=== PATIENT | female | born 1985 | race Caucasian/White ===

== ENCOUNTER 2025-10-12 19:10 | Inpatient (IN) ==
[2025-10-12] MEDS: SODIUM CHLORIDE 0.9% 1,000 ML IV SCH (19:59)
[2025-10-12] MEDS: LORazepam 1 MG/1 ML SYR ED Inj Use IV STA (20:02)
[2025-10-12 20:06] LABS: Hematocrit (blood only) 30.7 % (37.0-47.0); Hemoglobin 9.1 g/dL (12.0-16.0); Immature Granulocytes # (auto) 0.07 K/uL (0.01-0.20); Immature Granulocytes % (auto) 0.7 %; Mean Corpuscular Hemoglobin 24.4 pg (25.0-34.0); Mean Corpuscular Volume 82.3 fL (80.0-100.0); Platelet Count 339 K/uL (130-400); RDW Standard Deviation 48.5 fL (36.4-46.3); Red Blood Count 3.73 M/uL (4.20-5.40); White Blood Count 9.81 K/ul (4.8-10.8)
[2025-10-12 20:14] LABS: Appearance Urine Cloudy (Clear); Bacteria Urine Automated 4+ (None Seen); Epithelial Cell Urine Auto >20 /hpf (0-2); Glucose Urine UA Negative (Negative); RBC Urine Automated 0-2 /hpf (0-2); WBC Urine Automated 0-5 /hpf (0-5)
[2025-10-12 20:22] LABS: Acetaminophen < 3 ug/ml (10-30); Alanine Aminotransferase 36 U/L (7-52); Albumin Globulin Ratio 1.1 (0.9-2); Albumin Level 3.8 gm/dl (3.4-5.0); Alkaline Phosphatase 151 U/L (34-104); Anion Gap 8 (3-11); Bilirubin,Total 0.4 mg/dl (0.2-1.0); Blood Urea Nitrogen 14 mg/dl (6-23); Calcium 9.0 mg/dl (8.6-10.3); Carbon Dioxide 28 mmol/L (21-32); Chloride 103 mmol/L (98-107); Globulin 3.6 gm/dl (2.5-4.0); Glucose 129 mg/dl (70-99(Fasting)); Potassium 4.2 mmol/L (3.5-5.1); Salicylate < 3.0 mg/dl (3.0-30); Sodium 139 mmol/L (136-145); Total Protein 7.4 gm/dl (6.0-8.3)
[2025-10-12 20:38] LABS: Amphetamines+Metham, Urine Neg (Neg); MDMA (Ecstacy), Urine Neg (Neg); Marijuana, Urine Neg (Neg)
[2025-10-12 20:39] LABS: Thyroid Stimulating Hormone 1.059 uIu/ml (0.300-4.500)
--- NOTE | 2025-10-12 22:11 | Emergency Department Note ---
History of Present Illness General Chief complaint: Medical Clearance Stated complaint: Medical Clearance Time Seen by Provider: 10/12/25 19:42 History of Present Illness Provider complaint: Mental health evaluation 39-year-old female presents emergency department for mental health evaluation. Patient reports she needs help with her alcohol abuse as well as drug abuse. Patient reports she has been thoughts of wanting to hurt herself and suicide. Patient reports she tried to sign into the [facility] but they directed her here to be medically cleared before admission. Home Medications Medication Instructions Recorded Confirmed Type alprazolam 0.5 mg tablet 0.5 mg PO TID PRN anxiety 10/12/25 10/12/25 History apixaban 5 mg tablet (Eliquis) 5 mg PO BID 10/12/25 10/12/25 History clonidine HCl 0.2 mg tablet 0.2 mg PO TID PRN Hypertension 10/12/25 10/12/25 History cyclobenzaprine 10 mg tablet 10 mg DAILY PRN muscle spams 10/12/25 10/12/25 History esomeprazole magnesium 20 mg PO DAILY 10/12/25 10/12/25 History gabapentin 800 mg tablet 800 mg PO QID 10/12/25 10/12/25 History meloxicam 15 mg tablet 15 mg PO DAILY 10/12/25 10/12/25 History methadone 93 mg PO DAILY 10/12/25 10/12/25 History Allergies Allergy/AdvReac Type Severity Reaction Status Date / Time No Known Allergies Allergy Verified 10/12/25 20:10 Past Med/Surg History Problem List (Updated 10/12/25 @ 23:48 by Lb Mack MD) Alcohol abuse (Acute) Depression with suicidal ideation (Acute) Medical History (Updated 10/12/25 @ 23:48 by Lb Mack MD) GERD (gastroesophageal reflux disease) Social History (Updated 10/12/25 @ 22:14 by Lb Mack MD) Smoking Status: Current every day smoker Tobacco Type: Cigarettes Hx Alcohol Use: Yes Alcohol Intake Frequency: 4 or More x per/Week Hx Substance Use: Yes Prescribed Medications: Opiates Preferred Language: Japanese Feels Safe at Home: Hesitant to Answer Gender Identity: Female Physical Exam Vital Signs Vital Signs - 24 hr 10/12/25 19:15 10/12/25 19:38 10/12/25 21:02 Temperature 36.7 C Temperature Source Oral Pulse Rate 96 H 98 H 88 Respiratory Rate 20 16 Respiratory Effort / Characteristics Non-Labored Spontaneous Respiratory Depth Normal Blood Pressure 138/71 140/89 Blood Pressure Mean 93 106 Pulse Oximetry 97 99 Oxygen Delivery Method Room Air Room Air Sepsis Recent Fever Within 48 Hours No Sepsis New/Unexplained Change in Mental Status N/A Sepsis Action Taken by Nursing No Action Required 10/12/25 21:30 10/12/25 22:26 10/12/25 22:30 Temperature Temperature Source Pulse Rate 92 H 89 89 Respiratory Rate 18 18 16 Respiratory Effort / Characteristics Respiratory Depth Blood Pressure 140/71 135/89 116/83 Blood Pressure Mean 74 107 94 Pulse Oximetry 93 93 93 Oxygen Delivery Method Room Air Room Air Room Air Sepsis Recent Fever Within 48 Hours Sepsis New/Unexplained Change in Mental Status Sepsis Action Taken by Nursing Physical Exam GENERAL: oriented to person, place, and time. appears well-developed and well- nourished. HENT: Exam performed. - Head: Normocephalic and atraumatic. EYES: Conjunctivae and EOM are normal. Right eye exhibits no discharge. Left eye exhibits no discharge. No scleral icterus. NECK: Normal range of motion. Neck supple. No JVD present. CV: Normal rate, regular rhythm, normal heart sounds and intact distal pulses. There is no peripheral edema. Palpable radial pulses bue. PULM/CHEST: Effort normal and breath sounds normal. No respiratory distress. No stridor. no wheezes. no rales. ABD: The abdomen is soft. There is no tenderness. NEURO: Motor and sensation grossly intact. SKIN: Skin is warm and dry. He is not diaphoretic. PSYCH: Patient reports suicidal ideation. Course Course 1941: The patient was evaluated in room A8. A complete history and physical exam was performed 5: Patient medically cleared. Awaiting psychiatric placement. 6: Vital signs stable. Awaiting psychiatric placement. Case signed out to Dr. Guallpa Administered Medications Discontinued Medications Sodium Chloride (Nss) 1,000 mls @ 999 mls/hr IV .Q1H1M [place] Stop: 10/12/25 20:45 Last Infusion: 10/12/25 22:00 Dose: Infused Documented By: Admin: 10/12/25 19:59 Dose: 999 mls/hr Documented By: CASSIE Lorazepam (Lorazepam 1 Mg/1 Ml Syr Ed Inj Use) 1 mg IV ONE STA Stop: 10/12/25 19:43 Last Admin: 10/12/25 20:02 Dose: 1 mg Documented By: CASSIE Medical Decision Making Laboratory Data Attestation: I reviewed the patient's lab results. 10/12/25 19:34 10/12/25 19:34 Lab Results 10/12/25 Range/Units 19:34 WBC 9.81 (4.8-10.8) K/ul RBC 3.73 L (4.20-5.40) M/uL Hgb 9.1 L (12.0-16.0) g/dL Hct 30.7 L (37.0-47.0) % MCV 82.3 (80.0-100.0) fL MCH 24.4 L (25.0-34.0) pg MCHC 29.6 L (32.0-36.0) g/dL RDW Std Deviation 48.5 H (36.4-46.3) fL RDW Coeff of Eldon 16.6 H (11.5-14.5) % Plt Count 339 (130-400) K/uL MPV 9.6 (9.4-12.4) fL Immature Gran % (Auto) 0.7 % Neut % (Auto) 77.1 % Lymph % (Auto) 14.4 % Hendricks % (Auto) 5.3 % Eos % (Auto) 2.2 % Baso % (Auto) 0.3 % Neut # (Auto) 7.56 H (1.40-6.50) K/uL Lymph # (Auto) 1.41 (1.20-3.40) K/uL Hendricks # (Auto) 0.52 (0.11-0.59) K/uL Eos # (Auto) 0.22 (0.00-0.50) K/uL Baso # (Auto) 0.03 (0.00-0.20) K/uL Immature Gran # (Auto) 0.07 (0.01-0.20) K/uL Sodium 139 (136-145) mmol/L Potassium 4.2 (3.5-5.1) mmol/L Chloride 103 (98-107) mmol/L Carbon Dioxide 28 (21-32) mmol/L Anion Gap 8 (3-11) BUN 14 (6-23) mg/dl Creatinine 0.75 (0.6-1.2) mg/dl Est Cr Clr Drug Dosing Not Reportable eGFR 103.79 BUN/Creatinine Ratio 18.7 (10-20) Glucose 129 H (70-99(Fasting)) mg/dl Calcium 9.0 (8.6-10.3) mg/dl Total Bilirubin 0.4 (0.2-1.0) mg/dl AST 43 H (13-39) U/L ALT 36 (7-52) U/L Alkaline Phosphatase 151 H (34-104) U/L Total Protein 7.4 (6.0-8.3) gm/dl Albumin 3.8 (3.4-5.0) gm/dl Globulin 3.6 (2.5-4.0) gm/dl Albumin/Globulin Ratio 1.1 (0.9-2) TSH 1.059 (0.300-4.500) uIu/ml Urine Color Yellow Urine Appearance Cloudy A (Clear) Urine pH 6.5 (4.5-7.5) Ur Specific [place] 1.024 (1.000-1.030) Urine Protein Trace H (Negative) Urine Glucose (UA) Negative (Negative) Urine Ketones Trace H (Negative) Urine Blood Negative (Negative) Urine Nitrite Negative (Negative) Urine Bilirubin Negative (Negative) Urine Urobilinogen Negative (Negative) Ur Leukocyte Esterase Trace H (Negative) Urine WBC (Auto) 0-5 (0-5) /hpf Urine RBC (Auto) 0-2 (0-2) /hpf U Hyaline Cast (Auto) 3-5 H (0-2) /lpf U Epithel Cells (Auto) >20 H (0-2) /hpf Urine Bacteria (Auto) 4+ H (None Seen) Urine Comment Salicylates < 3.0 L (3.0-30) mg/dl Urine Opiates Screen Neg (Neg) Ur Methadone, Qual Pos H (Neg) Urine Fentanyl Screen Neg (Neg) Acetaminophen < 3 L (10-30) ug/ml Urine Barbiturates Neg (Neg) Ur Phencyclidine (PCP) Neg (Neg) U Amphetamin/Meth Scrn Neg (Neg) MDMA (Ecstasy) Screen Neg (Neg) U Benzodiazepines Scrn Pos H (Neg) Ur Cocaine Metabolite Neg (Neg) U Marijuana (THC) Screen Neg (Neg) Ethyl Alcohol mg/dL < 10.0 (<10.0) mg/dl [facility] Narrative 1941: The patient was evaluated in room A8. A complete history and physical exam was performed 2214: Patient medically cleared. Awaiting psychiatric placement. 2345: Vital signs stable. Awaiting psychiatric placement. Case signed out to Dr. Guallpa Impression & Plan Depression with suicidal ideation, Alcohol abuse Discharge Plan Visit Data Chief Complaint: Medical Clearance Stated Complaint: Medical Clearance ED Provider: Marvin Guallpa Discharge Problem: Depression with suicidal ideation, Alcohol abuse Patient Disposition: Still a Patient Condition: Fair Forms Stand Alone Forms: [facility] Prescriptions Prescriptions: No Action methadone 93 mg PO DAILY Eliquis 5 mg tablet 5 mg PO BID gabapentin 800 mg tablet 800 mg PO QID cyclobenzaprine 10 mg tablet 10 mg DAILY PRN (Reason: muscle spams ) alprazolam 0.5 mg tablet 0.5 mg PO TID PRN (Reason: anxiety ) meloxicam 15 mg tablet 15 mg PO DAILY clonidine HCl 0.2 mg tablet 0.2 mg PO TID PRN (Reason: Hypertension) esomeprazole magnesium 20 mg PO DAILY Referrals Referrals: [facility] [Other]
--- NOTE | 2025-10-12 23:47 | Emergency Department Note ---
ED Visit Note Patient was signed out to me at change of shift by Dr. Mack. Patient is suicidal and currently under 201, pending ongoing bed search. Plan currently is for the patient to be evaluated for placement at the [facility]. Patient was signed out to my colleague, Dr. Mai, pending ongoing bed search for final disposition. .
[2025-10-13 05:49] LABS: Hematocrit (blood only) 29.8 % (37.0-47.0); Hemoglobin 9.0 g/dL (12.0-16.0); Mean Corpuscular Hemoglobin 24.9 pg (25.0-34.0); Mean Corpuscular Volume 82.3 fL (80.0-100.0); Platelet Count 286 K/uL (130-400); RDW Standard Deviation 48.5 fL (36.4-46.3); Red Blood Count 3.62 M/uL (4.20-5.40); White Blood Count 7.81 K/ul (4.8-10.8)
[2025-10-13] MEDS: GABAPENTIN 800 MG TAB PO SCH ×2 (07:12→17:32)
[2025-10-13] MEDS: LOSARTAN POTASSIUM 50 MG TAB PO SCH (07:13)
--- NOTE | 2025-10-13 07:31 | Emergency Department Note ---
ED Visit Note Received this patient in signout. 39-year-old female history of anxiety depression referred from the [facility] for mental health evaluation. Home m edications were continued and voluntary inpatient psychiatric treatment was pursued. Evaluated patient around 0810 hrs. this morning. She is eating breakfast auguste and eggs and complaining of withdrawal symptoms from her methadone and inquiring about her medications. Her Eliquis and methadone have been scheduled for 9 AM and discussed with nursing obtaining them. Does report some slight cough cold symptoms send COVID flu RSV test is sent. Tylenol and cough drops ordered for as needed usage. Does not appear to be in alcohol withdrawal at this time. Pharmacy to confirm methadone dosing so there was a several hour delay. Case management assisted with inpatient referrals for psychiatric care. 3 S. requested a respiratory viral panel which was ordered. Evaluated by 3 S. and they assessed her with a PAWS score of 4 and recommended medical admission. Reached out to the medical team for further care for monitoring of possible alcohol withdrawal and further psychiatric care. Patient stated that she takes gabapentin 800 mg 4 times daily and Xanax 0.5 mg 3 times daily. Doses were ordered. Respiratory viral panel does return negative. Discussed with Dr. Peter who will evaluate for further care here medically. .
[2025-10-13] MEDS: METHADONE ORAL SOLN 2 MG/ML PO SCH ×2 (10:50→17:59)
[2025-10-13] MEDS: APIXABAN 5 MG TABLET PO SCH (10:50)
[2025-10-13] MEDS: ACETAMINOPHEN 325 MG TAB PO PRN (10:51)
[2025-10-13] MEDS: PATIENT'S OWN CONTROLLED MED 1 PO SCH ×2 (10:51→17:59)
[2025-10-13] MEDS: COUGH DROP (SUGAR FREE) LOZ 24 LOZ/1 BOX BUCCAL PRN (10:51)
[2025-10-13 12:37] LABS: Influenza A virus by PCR Negative (Neg); Influenza B virus by PCR Negative (Neg); SARS CoV2 RNA(COVID-19) Ceph NEGATIVE (Negative)
[2025-10-13 13:08] LABS: Chlamydia pneumoniae PCR Not Detected (NotDetected); Coronavirus 229E PCR Not Detected (NotDetected); Coronavirus CoV-2 (COVID19)PCR Not Detected (NotDetected); Coronavirus HKU1 PCR Not Detected (NotDetected); Coronavirus NL63 PCR Not Detected (NotDetected); Coronavirus OC43PCR Not Detected (NotDetected); Human Metapneumovirus PCR Not Detected (NotDetected); Parainfluenza Virus 1 PCR Not Detected (NotDetected); Parainfluenza Virus 2 PCR Not Detected (NotDetected); Parainfluenza Virus 3 PCR Not Detected (NotDetected); Parainfluenza Virus 4 PCR Not Detected (NotDetected); Respiratory Syncytial VirusPCR Not Detected (NotDetected); Rhinovirus/Enterovirus PCR Not Detected (NotDetected)
[2025-10-13] MEDS: GABAPENTIN 800 MG TAB PO ONE (13:45)
--- NOTE | 2025-10-13 14:35 | History & Physical Report ---
Date of Service October 13, 2025 Assessment & Plan (1) Alcohol abuse: (2) Pulmonary emboli: (3) GERD (gastroesophageal reflux disease): (4) Depression: (5) Anxiety: (6) Tobacco dependence: (7) Iron deficiency anemia: (8) Methadone maintenance therapy patient: Plan 39yo female with recent diagnosis of pulmonary emboli about 2 months ago at [facility] - now on Eliquis, alcohol abuse, methadone maintenance therapy for prior h/o opiate abuse, depression, HTN, GERD and tobacco dependence. Now being admitted for medical clearance to ensure no withdrawal from alcohol or other substance prior to admittance to inpatient psychiatric unit. #alcohol abuse - -thus far no signs of withdrawal based on symptoms or signs -ordered AWSS scale -ativan prn -will defer on scheduled prophylactic medicines for now -add thiamine IV -add folic IV -cont telemetry #tobacco dependence - -nicoderm patch 14mg/day #methadone maintenance - -currently takes 93mg BID -has been on methadone for 1-2 years; prior to such was on Suboxone, and prior to that had been on various opiates #iron deficiency anemia - -iron studies very c/w severe iron deficiency -she does not have menses; GI blood losses chronically? -would start supplementation #recent h/o PEs on Eliquis - -unprovoked -she reports dopplers of legs were negative -is establishing with hematology back home -cont Eliquis 5mg BID #HTN - -cont home meds but hold lasix #depression / anxiety - -to be admitted to psychiatry following this medical stay -cont Xanax prn to avoid benzo withdrawal -cont gabapentin QID (home med) -defer other meds to psych #GERD - -cont PPI #DVT proph - -Eliquis 5mg BID appreciate psych input/assistance History of Present Illness Chief Complaint: request for mental health services Primary Care Provider: Unknown Unknown 39yo female with recent diagnosis of pulmonary emboli about 2 months ago at [facility] - now on Eliquis, alcohol abuse, methadone maintenance therapy for prior h/o opiate abuse, depression, HTN, GERD and tobacco dependence. She had presented to the [facility] yesterday with hopes of gaining admission for her depression & other mental health problems. Due to concerns for possible alcohol withdrawal she was referred to the ER for evaluation by the [facility]. While in the [facility] ER she was seen by the behavioral health liaison and it was requested that she have at least 24 hours of observation in the medical [facility] to ensure no etoh withdrawal. Patient reports drinking about 8 shots of liquor/day. She began drinking at a young age. She has never had etoh withdrawal to her knowledge. She has never gone to inpatient drug/etoh rehab. Her last etoh beverage was yesterday afternoon - about 2pm. Reports 2 admissions in her teenage years for depression. Has had thoughts of dying in the past, but denies any active suicidal or homicidal ideation at this time. Allergies Allergy/AdvReac Type Severity Reaction Status Date / Time No Known Allergies Allergy Verified 10/12/25 20:10 Home Medications Medication Instructions Recorded Confirmed Type alprazolam 0.5 mg tablet 0.5 mg PO TID PRN anxiety 10/12/25 10/12/25 History apixaban 5 mg tablet (Eliquis) 5 mg PO BID 10/12/25 10/12/25 History gabapentin 800 mg tablet 800 mg PO QID 10/12/25 10/12/25 History methadone 93 mg PO BID 10/12/25 10/13/25 History boric acid 600 mg vaginal 600 mg vaginal QPM 10/13/25 10/13/25 History suppository (Azo Boric Acid) clonidine HCl 0.2 mg tablet 0.2 mg PO TID PRN Hypertension 10/13/25 10/13/25 History cyclobenzaprine 10 mg tablet 10 mg PO TID PRN Muscle Spasm 10/13/25 10/13/25 History esomeprazole magnesium 40 mg 20 mg PO QAM 10/13/25 10/13/25 History capsule,delayed release esomeprazole magnesium 40 mg 40 mg PO DAILY 10/13/25 10/13/25 History capsule,delayed release (Nexium) furosemide 40 mg tablet 40 mg PO QAM 10/13/25 10/13/25 History losartan 100 mg tablet 100 mg PO DAILY 10/13/25 10/13/25 History meloxicam 15 mg tablet 15 mg PO QAM 10/13/25 10/13/25 History Past Med/Surg History Problem List (Updated 10/14/25 @ 02:36 by Bertram Peter MD) Methadone maintenance therapy patient Iron deficiency anemia Medical History (Updated 10/14/25 @ 02:36 by Bertram Peter MD) Depression Anxiety Tobacco dependence Depression with suicidal ideation Alcohol abuse Pulmonary emboli GERD (gastroesophageal reflux disease) Family History (Updated 10/13/25 @ 20:42 by Bertram Peter MD) Mother Rheumatoid arthritis Hypertension Denies family history of Deep vein thrombosis Pulmonary embolism Social History (Updated 10/14/25 @ 02:28 by Bertram Peter MD) Smoking Status: Current every day smoker Tobacco Type: Cigarettes packs per day: 0.5; Cigarettes Per Day: 1/2 ppd; Do You Dip or Chew Tobacco: No; Hx Alcohol Use: Yes Alcohol type: hard liquor Alcohol Intake Frequency: 4 or More x per/Week Hx Substance Use: Yes Prescribed Medications: Opiates Prescribed Medications Comment: methadone maintenance Substance Use Type Other:: pt on methadone Preferred Language: Spanish Beliefs That Will Affect Care: None marital status: Single Current Living Situation: Homeless Current Living Situation Comment: Pt to be admitted to the [facility] current occupational status: unemployed How many Children do You have: 1 other: lives in [facility] Feels Safe at Home: Hesitant to Answer Gender Identity: Female Assistive Devices: Denture - Upper Review of Systems Review of Systems: gen - no fevers or chills, eating wnl today; no weight change eyes - no ocular complaints HENT - mild URI symptoms for few days CV - no chest pain pulm - no dyspnea GI - no vomiting today; no diarrhea; no abd pain; some GERD symptoms - no dysuria; LMP? musculo - denies joint pains neuro - no headache endo - no diabetes Physical Exam Physical Exam: gen - lying comfortably in bed, no signs of withdrawal, pleasant eyes - PERRL, pupils 4-5mm and reactive b/l HENT - MMM, no lesions neck - no JVD, no goiter heart - RRR, s1 s2, no murmur lungs - CTA b/l abd - soft NT ND BS+ ext - no edema, pulses 2+ b/l feet psych - a/o x 3, no signs of intoxication, no signs of withdrawal from any substance; denies SI/HI skin - no rash Results & Data Results & Data Vital Signs (Past 12 Hours) Vital Signs Pulse Resp BP Pulse Ox O2 Del Method 10/13/25 08:30 77 16 121/66 98 10/13/25 07:51 90 19 93 10/13/25 07:48 86 10/13/25 07:42 86 15 92 10/13/25 07:30 133/75 10/13/25 07:30 133/75 10/13/25 07:30 133/75 10/13/25 07:30 133/75 10/13/25 07:30 133/75 10/13/25 07:30 82 14 90 10/13/25 07:00 84 16 130/79 93 10/13/25 06:51 140/80 10/13/25 06:51 140/80 10/13/25 06:51 140/80 10/13/25 06:51 140/80 10/13/25 06:51 140/80 10/13/25 06:42 82 16 92 10/13/25 06:30 77 14 94 10/13/25 06:21 81 13 93 10/13/25 06:12 94 H 19 96 10/13/25 06:00 83 13 97 10/13/25 05:51 88 17 97 10/13/25 05:45 91 H 15 97 10/13/25 05:30 98 H 16 10/13/25 05:30 144/107 H 10/13/25 05:30 144/107 H 10/13/25 05:30 144/107 H 10/13/25 05:30 144/107 H 10/13/25 05:30 144/107 H 10/13/25 05:21 86 20 10/13/25 05:12 78 21 10/13/25 05:00 77 14 10/13/25 05:00 148/92 H 10/13/25 05:00 148/92 H 10/13/25 05:00 148/92 H 10/13/25 05:00 148/92 H 10/13/25 05:00 148/92 H 10/13/25 04:51 78 17 10/13/25 04:42 84 15 92 10/13/25 04:30 138/78 10/13/25 04:30 138/78 10/13/25 04:30 138/78 10/13/25 04:30 81 15 138/78 94 10/13/25 04:00 84 13 137/99 92 10/13/25 03:59 80 10/13/25 03:30 79 18 138/81 92 10/13/25 03:00 86 15 146/98 H 93 Room Air Laboratory Results Laboratory Results - last 24 hr 10/12/25 10/13/25 10/13/25 19:34 05:30 11:20 WBC 7.81 RBC 3.62 L Hgb 9.0 L Hct 29.8 L MCV 82.3 MCH 24.9 L MCHC 30.2 L RDW Std Deviation 48.5 H RDW Coeff of Eldon 16.5 H Plt Count 286 MPV 9.3 L Magnesium 1.9 Iron 25 L TIBC 634 H Transferrin 453 H Transferrin % Sat 4 L Ferritin 9.2 Vitamin B12 HCG, Qual Adenovirus (PCR) B. pertussis DNA (PCR) B.parapertussis DNA PCR C. pneumoniae DNA (PCR) Coronavirus OC43 (PCR) Coronavirus HKU1 (PCR) Coronavirus 229E (PCR) SARS-CoV-2 (PCR) NEGATIVE Coronavirus NL63 (PCR) Human Metapneumovir PCR Influenza Type A (PCR) Negative Influenza Type B (PCR) Negative M. pneumoniae (PCR) Parainfluenza 1 (PCR) Parainfluenza 2 (PCR) Parainfluenza 3 (PCR) Parainfluenza 4 (PCR) RSV (RT-PCR) Negative RSV (PCR) Entero/Rhino (PCR) 10/13/25 10/13/25 11:24 Unknown WBC RBC Hgb Hct MCV MCH MCHC RDW Std Deviation RDW Coeff of Eldon Plt Count MPV Magnesium Iron TIBC Transferrin Transferrin % Sat Ferritin Vitamin B12 292 HCG, Qual Negative Adenovirus (PCR) Not Detected B. pertussis DNA (PCR) Not Detected B.parapertussis DNA PCR Not Detected C. pneumoniae DNA (PCR) Not Detected Coronavirus OC43 (PCR) Not Detected Coronavirus HKU1 (PCR) Not Detected Coronavirus 229E (PCR) Not Detected SARS-CoV-2 (PCR) Not Detected Coronavirus NL63 (PCR) Not Detected Human Metapneumovir PCR Not Detected Influenza Type A (PCR) Not Detected Influenza Type B (PCR) Not Detected M. pneumoniae (PCR) Not Detected Parainfluenza 1 (PCR) Not Detected Parainfluenza 2 (PCR) Not Detected Parainfluenza 3 (PCR) Not Detected Parainfluenza 4 (PCR) Not Detected RSV (RT-PCR) RSV (PCR) Not Detected Entero/Rhino (PCR) Not Detected ECG Additional Comments: EKG - my reading - NSR, nonspecific ST changes anterior leads, QTc wnl PG Care Time/CCT Total # of Minutes Spent Total Time Spent with Patient: Total time spent is greater than 50% in coordination of care (as documented) at patient's floor/unit and/or counseling patient: Coding Level of Care Code 68036 INT INP/OBS CARE 2/55MIN Diagnoses Alcohol abuse F10.10 Pulmonary emboli I26.99 GERD (gastroesophageal reflux disease) K21.9 Depression F32.A Anxiety F41.9 Tobacco dependence F17.200 Iron deficiency anemia D50.9 Methadone maintenance therapy patient Z79.001
[2025-10-13 15:58] LABS: Iron 25 mcg/dl (35-150); Magnesium 1.9 mg/dl (1.7-2.4); Total Iron Binding Cap Calc 634 mcg/dl (250-450); Transferrin 453 mg/dl (200-360); Transferrin (FE) Percent Satur 4 % (15-50)
[2025-10-13 16:07] LABS: Pregnancy Test, Serum Negative (Negative)
[2025-10-13 16:19] LABS: Ferritin 9.2 ng/ml (8-388)
[2025-10-13] MEDS ORDERED: METHADONE ORAL SOLN 2 MG/ML PO SCH ×2 (17:30)
[2025-10-13] MEDS: SUCRALFATE 1 GM/10 ML UDC PO ONE (18:01)
[2025-10-13] MEDS ORDERED: LORazepam 1 MG TAB PO PRN (20:05)
[2025-10-13] MEDS ORDERED: ONDANSETRON INJ 2 MG/ML 2 ML VIAL IV PRN (20:05)
[2025-10-13] MEDS: NICOTINE 14 MG/24 HR PATCH TD SCH (20:57)
[2025-10-13] MEDS: FOLIC ACID 1 MG in SYRINGE 9.8 ML IV STA (20:58)
--- NOTE | 2025-10-13 21:29 | Electrocardiogram Report ---
Test Reason : Blood Pressure : */* mmHG Vent. Rate : 95 BPM Atrial Rate : 95 BPM P-R Int : 108 ms QRS Dur : 94 ms QT Int : 374 ms P-R-T Axes : 30 10 30 degrees QTcB Int : 469 ms Sinus rhythm with short [place] Minimal voltage criteria for LVH, may be normal variant ( R in aVL ) Cannot rule out Anterior infarct , age undetermined Nonspecific ST and T wave abnormality Abnormal ECG No previous ECGs available Confirmed by Jose Elias Sorensen ([id number]) on 10/13/2025 9:29:21 PM Referred By: REFERRED SELF Confirmed By: Jose Elias Sorensen
[2025-10-13] MEDS: THIAMINE HCL 500 MG in SODIUM CHLORIDE 0.9% 50 ML IV SCH (22:02)
[2025-10-13] MEDS: MELATONIN 3 MG TAB PO PRN (22:02)
[2025-10-14 06:07] LABS: Alanine Aminotransferase 23.0 U/L (7-52); Albumin Globulin Ratio 1.2 (0.9-2); Albumin Level 3.6 gm/dl (3.4-5.0); Alkaline Phosphatase 126.0 U/L (34-104); Anion Gap 5.0 (3-11); Bilirubin,Total 0.3 mg/dl (0.2-1.0); Blood Urea Nitrogen 11.0 mg/dl (6-23); Calcium 8.5 mg/dl (8.6-10.3); Carbon Dioxide 28.0 mmol/L (21-32); Chloride 108.0 mmol/L (98-107); Creatinine Clr Calc Pharmacy 124.0 ml/min; Globulin 2.9 gm/dl (2.5-4.0); Glucose 78.0 mg/dl (70-99(Fasting)); Potassium 4.0 mmol/L (3.5-5.1); Sodium 141.0 mmol/L (136-145); Total Protein 6.5 gm/dl (6.0-8.3)
[2025-10-14] MEDS: CYANOCOBALAMIN (B-12) 500 MCG TABLET PO SCH (08:09)
[2025-10-14] MEDS: FOLIC ACID 1 MG in SYRINGE 9.8 ML IV SCH (08:10)
[2025-10-14] MEDS: REMOVE NICODERM PATCH SCH (08:10)
[2025-10-14] MEDS: SENNA 8.6 MG TAB PO SCH (08:35)
[2025-10-14] MEDS: POLYETHYLENE (MIRALAX) 17 GM PACK PO SCH (08:35)
[2025-10-14] MEDS: IRON SUCROSE 300 MG in SODIUM CHLORIDE 0.9% 250 ML IV ONE (11:29)
--- NOTE | 2025-10-14 12:24 | Psychiatric Consultation ---
Date of Consultation October 14, 2025 Impression / Recommendations Impression Ale Carpio a 39-year-old female, who presented to the [facility] initially reporting passive suicidal ideation, but denies ideation now. She does have symptoms of anxiety and depression, which are primarily triggered at this point by her homelessness, and are further complicated by substance use. She reportedly does take methadone and benzodiazepine only as prescribed, but continues to abuse alcohol. So far, she has had no alcohol withdrawal symptoms. I did talk with her about starting an SSRI to target depression and anxiety symptoms. She feels Prozac has been helpful did not cause side effects in the past, but she did not stay on the long enough to know if it was helpful. Could start Prozac 20 mg daily. Long-term plan for her would be to get her off Xanax, but this would have to be done very slowly and likely in a monitored setting Patient is interested in a residential type treatment, since she does not have stable housing and feels overwhelmed. However, she does not qualify for psychiatric admission when she does not have active suicidal ideation, and is not a danger to herself or others, and able to care for herself. A dual diagnosis rehab would be an appropriate option to explore, if the patient is agreeable. If not, she could choose to pursue outpatient treatment closer to her home area, and utilize the winter/cold weather residential there. If she is not staying in the residential treatment, she will need to get back to the [facility] to continue follow-up with her methadone clinic anyway. If she is discharging to an outpatient setting, consider sending her with a 30 day Prozac prescription that could cover her until she gets in with her methadone clinic. Presumably they could make a referral for outpatient psychiatry treatment as well. Overall, I spent a total of 60 minutes on this patient's care, including review of chart/records, direct evaluation of the patient, ordering medication, coordination with nursing, interdisciplinary team meeting, and documentation. (1) Methadone maintenance therapy patient: (2) Post traumatic stress disorder (PTSD): (3) Adjustment disorder with mixed anxiety and depressed mood: (4) Alcohol use disorder: (5) Benzodiazepine dependence: Plan No indication for psychiatric admission at this time Could start Prozac 20 mg daily for anxiety and depression. Patient has tolerated it well in the past. Recommend referral to dual diagnosis rehab that could treat both substance and mental health. Alternatively, patient could choose to pursue outpatient treatment closer to [facility], where her methadone clinic is located. Psych History Identifying Data Ale Schneider is a 39-year-old female with a history of hypertension, GERD, recent PE on Eliquis, alcohol abuse, opiate use disorder, depression. She presented to the ED on 10/12/2025 after being referred by [facility] for medical clearance. Chief Complaint " My life is falling apart". History of Present Illness Patient is not previously known to this department, and is from the [facility]. She self-presented to [facility] seeking psychiatric admission for treatment of anxiety and depression, reporting passive SI. given her recent alcohol use, they required she be evaluated in an emergency room for medical clearance. She was admitted for observation to rule out alcohol with drawal. She has been stable and not requiring alcohol withdrawal medication. however, after reviewing her case, [facility] did decline her referral due to medical complexity. Psychiatry is consulted for evaluation of need for psychiatric admission. Patient states she has been looking into the [facility] as possible treatment option for several months. Ultimately, she decided to pursue it and anxiety and depression were worsening in the setting of having to leave work most recent source of housing, which was a friends place. That friend drove her here so she could be a walk-in to [facility]. She says anxiety tends to worsen depression and is "constant". She says it causes her heart to pounding and she sometimes feels short of breath. No GI symptoms or headaches. She will tend to isolate herself and avoid being around people. She does not report excessive worry, but does say that she recently has been stressed by homelessness and worsening back pain. She denies any auditory visualizations. Denies paranoia. No manic symptoms. No clear panic attacks. Denies withdrawal symptoms. She actually did deny suicidal ideation, stating "not really", and then "I know you have to e xaggerate to get admitted". She felt she had no options of places to live, and this prompted her looking into inpatient psychiatric treatment. She says she was avoiding going to rehab because they tend to take her off Xanax too quickly. She has been on Xanax for 5 years. It is prescribed by her methadone doctor. She attends a methadone clinic in [facility], where she also sees a therapist and has a sample case porter. Past Psychiatric History Previous Psych History: reported past diagnoses of major depressive disorder, generalized anxiety disorder, PTSD +trauma hx Fhx - mother - etoh addiction (now sober) Current Psychiatric Diagnosis: MDD, PTSD, SIENA Outpatient Services: Has a therapist through her methadone clinic. No psychiatrist. Has a sample case porter. Previous Psych Admissions: history of suicide attempt at age 15 by taking sleeping pills and antidepressant overdose Hospital[facility] at [facility] at age 15. No further psychiatric admissions. History of Previous Suicide Attempt: Yes Past Medication Trials: Lexapro (may cause worse anxiety), Prozac (caused no problems but she did not stay on it), Suboxone, other benzodiazepines. Additional Notes: Addiction began in her teenage years, and led to her withdrawing from school in grade 11 Attended rehab 5 years ago at [place] Drinking 8-10 alcoholic beverages (typically small liquor bottles) daily for the past 3 months. Last drink was approximately 6 hours prior to presentation to the emergency room. Per PDMP, she does feel Xanax consistently every 14 days, prescribed by Elsa Smith who is based out of [facility] in [facility]. PDMP does not show any record of methadone being filled in the last year, But UDS was positive for methadone. Patient reportedly takes 93 mg daily. UDS also positive for benzos. Alcohol level was negative. Allergies Allergy/AdvReac Type Severity Reaction Status Date / Time No Known Allergies Allergy Verified 10/12/25 20:10 Home Medications Medication Instructions Recorded Confirmed Type alprazolam 0.5 mg tablet 0.5 mg PO TID PRN anxiety 10/12/25 10/12/25 History apixaban 5 mg tablet (Eliquis) 5 mg PO BID 10/12/25 10/12/25 History gabapentin 800 mg tablet 800 mg PO QID 10/12/25 10/12/25 History methadone 93 mg PO BID 10/12/25 10/13/25 History boric acid 600 mg vaginal 600 mg vaginal QPM 10/13/25 10/13/25 History suppository (Azo Boric Acid) clonidine HCl 0.2 mg tablet 0.2 mg PO TID PRN Hypertension 10/13/25 10/13/25 History cyclobenzaprine 10 mg tablet 10 mg PO TID PRN Muscle Spasm 10/13/25 10/13/25 History esomeprazole magnesium 40 mg 20 mg PO QAM 10/13/25 10/13/25 History capsule,delayed release esomeprazole magnesium 40 mg 40 mg PO DAILY 10/13/25 10/13/25 History capsule,delayed release (Nexium) furosemide 40 mg tablet 40 mg PO QAM 10/13/25 10/13/25 History losartan 100 mg tablet 100 mg PO DAILY 10/13/25 10/13/25 History meloxicam 15 mg tablet 15 mg PO QAM 10/13/25 10/13/25 History Patient History Medical History (Updated 10/14/25 @ 14:42 by Analy Vail DO) Depression Anxiety Tobacco dependence Depression with suicidal ideation Alcohol abuse Pulmonary emboli GERD (gastroesophageal reflux disease) Family History Mother Rheumatoid arthritis Hypertension Denies family history of Deep vein thrombosis Pulmonary embolism Social History Smoking Status: Current every day smoker Tobacco Type: Cigarettes packs per day: 0.5; Cigarettes Per Day: 1/2 ppd; Do You Dip or Chew Tobacco: No; Hx Alcohol Use: Yes Alcohol type: hard liquor Alcohol Intake Frequency: 4 or More x per/Week Hx Substance Use: Yes Prescribed Medications: Opiates Prescribed Medications Comment: methadone maintenance Substance Use Type Other:: pt on methadone Preferred Language: Welsh Beliefs That Will Affect Care: None marital status: Single Current Living Situation: Homeless Current Living Situation Comment: Pt to be admitted to the [facility] current occupational status: unemployed How many Children do You have: 1 other: lives in [facility] Feels Safe at Home: Hesitant to Answer Safety Concerns: Feels Safe At This Time Gender Identity: Female Assistive Devices: Denture - Upper Physical Exam Psychiatric: Orientation: alert, oriented x 3 and cooperative Apperance: appropriately dressed and appropriately groomed Eye Contact: + fair eye contact Motor Behavior: steady gait and station and no abnormal motor movements fidgeting Speech: normal rate/rhythm/volume of speech Affect: + anxious affect, + constricted affect and mood congruent with affect Mood: + depressed mood and + anxious mood Thought Process: goal directed thought process, linear/logical thought process, clear/coherent thought process and thought association intact Thought Content: reality based without delusions Suicidal Thoughts: denies suicidal thoughts, denies suicidal plan and denies suicidal intent Homicidal Thoughts: denies homicidal thoughts, denies homicidal plan and denies homicidal intent Hallucinations: no auditory hallucinations and no visual hallucinations Cognition: recent memory grossly intact, remote memory grossly intact, attention grossly intact and language grossly intact Estimated Intelligence: consistent with education level Insight: + fair insight Judgment: + fair judgement Vital Signs (Past 24 Hours): Last Vital Signs Temp 36.4 C L 10/14/25 11:23 Pulse 75 10/14/25 11:23 Resp 18 10/14/25 11:23 BP 145/71 H 10/14/25 11:23 Pulse Ox 93 10/14/25 11:23 O2 Del Method Room Air 10/14/25 11:23 Results & Data (PSY) Medications Administered Acetaminophen (Acetaminophen 325 Mg Tab) 650 mg PO Q6H PRN PRN Reason: Pain or Fever Stop: 11/12/25 08:14 Last Admin: 10/13/25 10:51 Dose: 650 mg Documented By: cintia Alprazolam (Alprazolam 0.5 Mg Tablet) 0.5 mg PO TID PRN PRN Reason: anxiety Stop: 11/12/25 20:04 Last Admin: 10/14/25 06:34 Dose: 0.5 mg Documented By: Admin: 10/13/25 22:03 Dose: 0.5 mg Documented By: DEMARCUS Apixaban (Apixaban 5 Mg Tablet) 5 mg PO BID [facility] Stop: 11/12/25 08:59 Last Admin: 10/14/25 08:09 Dose: 5 mg Documented By: Admin: 10/13/25 22:08 Dose: 5 mg Documented By: Admin: 10/13/25 10:50 Dose: 5 mg Documented By: cintia Cyanocobalamin (Cyanocobalamin (B-12) 500 Mcg Tablet) 1,000 mcg PO QAM [facility] Stop: 11/13/25 08:59 Last Admin: 10/14/25 08:09 Dose: 1,000 mcg Documented By: RICHAR Gabapentin (Gabapentin 800 Mg Tab) 800 mg PO QID [facility] Stop: 11/12/25 16:59 Last Admin: 10/14/25 08:05 Dose: 800 mg Documented By: Admin: 10/13/25 20:57 Dose: 800 mg Documented By: Admin: 10/13/25 17:32 Dose: 800 mg Documented By: MITCH Thiamine HCl 500 mg/ Sodium (Chloride) 55 mls @ 210 mls/hr IV Q8H [facility] Stop: 10/15/25 12:21 Last Infusion: 10/14/25 11:29 Dose: Infused Documented By: Admin: 10/14/25 11:10 Dose: 210 mls/hr Documented By: Infusion: 10/14/25 04:44 Dose: Infused Documented By: Admin: 10/14/25 04:28 Dose: 210 mls/hr Documented By: Infusion: 10/13/25 22:18 Dose: Infused Documented By: Admin: 10/13/25 22:02 Dose: 210 mls/hr Documented By: DEMARCUS Folic Acid 1 mg/ Syringe 10 mls @ 5 mls/min IV QAM [facility] Stop: 11/13/25 08:59 Last Admin: 10/14/25 08:10 Dose: 5 mls/min Documented By: RICHAR Losartan Potassium (Losartan Potassium 50 Mg Tab) 100 mg PO QAM [facility] Stop: 11/12/25 08:59 Last Admin: 10/14/25 08:10 Dose: 100 mg Documented By: Admin: 10/13/25 07:13 Dose: 100 mg Documented By: nrs Melatonin (Melatonin 3 Mg Tab) 3 mg PO HS PRN PRN Reason: Sleep Stop: 11/12/25 20:04 Last Admin: 10/13/25 22:02 Dose: 3 mg Documented By: DEMARCUS Menthol (Cough Drop (Sugar Free) Humberto 24 Humberto/1 Box) 1 humberto BUCCAL Q2H PRN PRN Reason: Sore Throat Stop: 11/12/25 08:13 Last Admin: 10/13/25 10:51 Dose: 1 humberto Documented By: nrs Methadone HCl (Methadone Oral Soln 2 Mg/Ml) 93 mg PO BID@0630,1730 [facility] Stop: 10/27/25 17:29 Last Admin: 10/14/25 06:24 Dose: 93 mg Documented By: Admin: 10/13/25 17:59 Dose: 93 mg Documented By: BORA Miscellaneous (Boric Acid [Azo Boric Acid] 600 Mg Suppository- Order Awaiting Action) 1 each N/A QS [facility] Stop: 11/13/25 00:00 Last Admin: 10/14/25 08:05 Dose: Not Given Documented By: Admin: 10/13/25 23:41 Dose: Not Given Documented By: DEMARCUS Miscellaneous (Remove Nicoderm Patch) 1 each N/A DAILY@0859 [facility] Stop: 11/13/25 08:58 Last Admin: 10/14/25 08:10 Dose: 1 each Documented By: RICHAR Nicotine (Nicotine 14 Mg/24 Hr Patch) [facility] Stop: 11/12/25 20:04 Last Admin: 10/14/25 08:10 Dose: 1 patch Documented By: Admin: 10/13/25 20:57 Dose: 1 patch Documented By: MAURICIO Non-Formulary Medication (Patient's Own Controlled Med 1) 1 each PO BID@5930,3510 [facility] Stop: 10/27/25 17:29 Last Admin: 10/14/25 06:25 Dose: Not Given Documented By: Admin: 10/13/25 17:59 Dose: Not Given Documented By: BORA Pantoprazole Sodium (Pantoprazole 40 Mg Tab) 40 mg PO QAM [facility] Stop: 11/13/25 08:59 Last Admin: 10/14/25 08:10 Dose: 40 mg Documented By: RICHAR Polyethylene Glycol (Polyethylene (Miralax) 17 Gm Pack) 17 gm PO DAILY [facility] Stop: 11/13/25 08:59 Last Admin: 10/14/25 08:35 Dose: 17 gm Documented By: RICHAR Sennosides (Senna 8.6 Mg Tab) 17.2 mg PO QAM [facility] Stop: 11/13/25 08:59 Last Admin: 10/14/25 08:35 Dose: 17.2 mg Documented By: RICHAR Coding Level of Care Code 81634 IN/OBS CONSULT LVL 4,60M Diagnoses Methadone maintenance therapy patient Z79.072 Post traumatic stress disorder (PTSD) F43.10 Adjustment disorder with mixed anxiety and depressed mood F43.23 Alcohol use disorder F10.90 Benzodiazepine dependence F13.20
[2025-10-14] MEDS: PATIENT'S OWN CONTROLLED MED 3 PO SCH (16:34)
[2025-10-14] MEDS: SUCRALFATE 1 GM/10 ML UDC PO ONE (16:55)
--- NOTE | 2025-10-14 20:51 | Hospitalist Progress Note ---
Date of Service October 14, 2025 Assessment & Plan (1) Alcohol abuse: (2) Pulmonary emboli: (3) GERD (gastroesophageal reflux disease): (4) Depression: (5) Anxiety: (6) Tobacco dependence: (7) Iron deficiency anemia: (8) Methadone maintenance therapy patient: Plan 39yo female with recent diagnosis of pulmonary emboli about 2 months ago at [facility] - now on Eliquis, alcohol abuse, methadone maintenance therapy for prior h/o opiate abuse, depression, HTN, GERD and tobacco dependence. Now being admitted for medical clearance to ensure no withdrawal from alcohol or other substance prior to admittance to inpatient psychiatric unit. #alcohol abuse - -again no signs of withdrawal based on symptoms or signs -remains on AWSS scale; has not required any prn ativan -cont ignacia defer on scheduled prophylactic medicines -cont thiamine IV -cont folic IV -cont telemetry - which has been normal to date #tobacco dependence - -nicoderm patch 14mg/day #methadone maintenance - -currently takes 93mg BID -has been on methadone for 1-2 years; prior to such was on Suboxone, and prior to that had been on various opiates #iron deficiency anemia - -iron studies very c/w severe iron deficiency -she does not have menses; GI blood losses chronically? will need GI w/u upon return to [place], [facility] -cont PPI -IV venofer 300mg IV today; then consider another dose tomorrow -B12 level is low normal (290s) - supplement #recent h/o PEs on Eliquis - -unprovoked -she reports dopplers of legs were negative -is establishing with hematology back home -cont Eliquis 5mg BID #HTN - -cont home meds but hold lasix #depression / anxiety - -cont Xanax prn to avoid benzo withdrawal -cont gabapentin QID (home med) -defer other meds to psych -patient wants to go to the [facility] - social work aware, psych aware - social work to call to the [facility] to see if this is still a possible discharge disposition for her #GERD - -cont PPI; may need BID dosing due to ongoing symptoms #DVT proph - -Eliquis 5mg BID #abnormal EKG - -obtain echo -nonspecific anterior ST changes Admission and Anticipated Discharge Date Admission Date: October 13, 2025 Subjective no events overnight tele wnl did not require any ativan prn etoh withdrawal still interested in going to inpatient psych at the [facility] denies any withdrawal symptoms this am having reflux issues at times we discussed the Fe def issues Review of Systems Review of Systems: CV - no cp pulm - no dyspnea GI - no N/V neuro - no tremors Physical Exam Physical Exam: gen - lying comfortably in bed, no signs of withdrawal, pleasant HENT - MMM neck - no JVD heart - RRR, s1 s2, no murmur lungs - CTA b/l abd - soft NT ND BS+ ext - no edema, pulses 2+ b/l feet psych - a/o x 3 neuro - no tremors Results & Data Results & Data Vital Signs (Past 12 Hours) Vital Signs Temp Pulse Pulse Resp BP Pulse Ox O2 Del Method 10/14/25 19:24 36.8 C 82 20 158/97 H 95 Room Air 10/14/25 15:11 102 H 10/14/25 15:02 36.7 C 76 20 151/99 H 96 Room Air 10/14/25 11:23 36.4 C L 75 18 145/71 H 93 Room Air 10/14/25 10:26 89 Laboratory Results Laboratory Results - last 24 hr 10/14/25 05:34 Sodium 141 Potassium 4.0 Chloride 108 H Carbon Dioxide 28 Anion Gap 5 BUN 11 Creatinine 0.77 Est Cr Clr Drug Dosing 124.0 eGFR 100.57 BUN/Creatinine Ratio 14.3 Glucose 78 Calcium 8.5 L Total Bilirubin 0.3 AST 28 ALT 23 Alkaline Phosphatase 126 H Total Protein 6.5 Albumin 3.6 Globulin 2.9 Albumin/Globulin Ratio 1.2 PG Care Time/CCT Total # of Minutes Spent Total Time Spent with Patient: Total time spent is greater than 50% in coordination of care (as documented) at patient's floor/unit and/or counseling patient: Coding Level of Care Code 37635 SUB INP/OBS CARE 3/50MIN Diagnoses Alcohol abuse F10.10 Pulmonary emboli I26.99 GERD (gastroesophageal reflux disease) K21.9 Depression F32.A Anxiety F41.9 Tobacco dependence F17.200 Iron deficiency anemia D50.9 Methadone maintenance therapy patient Z79.891
[2025-10-15] MEDS: IRON SUCROSE 300 MG in SODIUM CHLORIDE 0.9% 250 ML IV ONE (10:13)
[2025-10-15 10:24] LABS: Hematocrit (blood only) 29.0 % (37.0-47.0); Hemoglobin 8.7 g/dL (12.0-16.0); Mean Corpuscular Hemoglobin 25.1 pg (25.0-34.0); Mean Corpuscular Volume 83.8 fL (80.0-100.0); Platelet Count 302 K/uL (130-400); RDW Standard Deviation 49.5 fL (36.4-46.3); Red Blood Count 3.46 M/uL (4.20-5.40); White Blood Count 8.87 K/ul (4.8-10.8)
[2025-10-15] MEDS: NITROGLYCERIN SL 0.4 MG/TAB TAB ONE (10:33)
[2025-10-15] MEDS: NITROGLYCERIN SL 0.4 MG/TAB TAB SL STA (10:43)
[2025-10-15] MEDS: ALBUT/IPRATROP 3MG/0.5MG NEB 3 ML VIAL NEB STA (12:26)
--- NOTE | 2025-10-15 15:15 | XCELERA ---
[id number]
--- NOTE | 2025-10-15 17:26 | XRay Report ---
Clinical History: Acute bronchitis Technique: PA and lateral views of the chest were obtained Findings: There is possible right lower lobe infiltrate. The heart size is within normal limits. No pleural effusion or pneumothorax is seen. There is no definite pulmonary nodule. No fracture is noted. No foreign body is seen Impression: Possible right lower lobe pneumonia ACT 112: Positive. There are findings on this exam that require communication between the performing entity and the patient following Patient Test Result Information Act ([place] ACT 112) guidelines. Electronically signed by Petros Da Silva 10-15-2025 5:25 PM
[2025-10-15] MEDS: SUCRALFATE 1 GM/10 ML UDC PO SCH (18:08)
[2025-10-15] MEDS: FLUTICASONE/VILANTEROL 100/25MCG 14 PUFFS/INHALER INH SCH (18:09)
[2025-10-15] MEDS: DOXYCYCLINE HYCLATE 100 MG CAP PO STA (18:10)
--- NOTE | 2025-10-15 18:21 | Electrocardiogram Report ---
Test Reason : Blood Pressure : */* mmHG Vent. Rate : 83 BPM Atrial Rate : 83 BPM P-R Int : 186 ms QRS Dur : 88 ms QT Int : 370 ms P-R-T Axes : 41 26 37 degrees QTcB Int : 434 ms Sinus rhythm Nonspecific T wave abnormality When compared with ECG of 12-Oct-2025 19:34, FL interval has increased T wave inversion no longer evident in Anterior leads Confirmed by Jose Elias Sorensen ([id number]) on 10/15/2025 6:21:36 PM Referred By: REFERRED SELF Confirmed By: Jose Elias Sorensen
--- NOTE | 2025-10-15 18:22 | Electrocardiogram Report ---
Test Reason : Blood Pressure : */* mmHG Vent. Rate : 77 BPM Atrial Rate : 77 BPM P-R Int : 158 ms QRS Dur : 90 ms QT Int : 440 ms P-R-T Axes : 48 26 17 degrees QTcB Int : 497 ms Normal sinus rhythm Prolonged QT Abnormal ECG When compared with ECG of 14-Oct-2025 16:50, QT has lengthened Confirmed by Jose Elias Sorensen ([id number]) on 10/15/2025 6:22:25 PM Referred By: REFERRED SELF Confirmed By: Jose Elias Sorensen
--- NOTE | 2025-10-15 18:54 | Hospitalist Progress Note ---
Date of Service October 15, 2025 Assessment & Plan (1) RLL pneumonia: (2) Pleuritic chest pain: (3) Alcohol abuse: (4) Pulmonary emboli: (5) GERD (gastroesophageal reflux disease): (6) Depression: (7) Anxiety: (8) Tobacco dependence: (9) Iron deficiency anemia: (10) Methadone maintenance therapy patient: Plan 39yo female with recent diagnosis of pulmonary emboli about 2 months ago at [facility] - now on Eliquis, alcohol abuse, methadone maintenance therapy for prior h/o opiate abuse, depression, HTN, GERD and tobacco dependence. Now being admitted for medical clearance to ensure no withdrawal from alcohol or other substance prior to admittance to inpatient psychiatric unit. #pleuritic chest pain - -suspect 2nd to bronchitis/RLL pneumonia -is on Eliquis BID and doubt recurrent PEs -CXR with possible RLL pneumonia -has had URI symptoms for about a week; interestingly her resp BioFire was negative -pleuritic symptoms improved s/p duoneb x 1 today -nitro SL x 1 did nothing for pain -I doubt pericarditis -echo returned with normal EF, normal LV wall motion, normal valves, no pericardial effusion -troponin negative -treat for bronchitis; treat for RLL pneumonia #RLL pneumonia and acute bronchitis - -add Breo daily -add mucinex 1200mg BID -add cefdinir 300mg BID x 7 days + doxy 100mg BID x 7 days -stable in room air #alcohol abuse - -again no signs of withdrawal based on symptoms or signs -remains on AWSS scale; has not required any prn ativan -cont thiamine -cont folic acid #tobacco dependence - -nicoderm patch 14mg/day #methadone maintenance - -currently takes 93mg BID -has been on methadone for 1-2 years; prior to such was on Suboxone, and prior to that had been on various opiates #iron deficiency anemia - -iron studies very c/w severe iron deficiency -she does not have menses; GI blood losses chronically? will need GI w/u upon return to [place], her home city -cont PPI -IV venofer 300mg IV x 3 doses while here -B12 level is low normal (290s) - supplement #recent h/o PEs on Eliquis - -unprovoked -she reports dopplers of legs were negative -is establishing with hematology back home -cont Eliquis 5mg BID #HTN - -cont home meds but hold lasix #depression / anxiety - -cont Xanax prn to avoid benzo withdrawal -cont gabapentin QID (home med) -defer other meds to psych -patient wanted to go to the [facility] but unfortunately she has not been accepted there and she does not meet criteria for [address] [place] [address] Behavioral Health unit -thus, does not require inpatient psych treatment -will ultimately d/c to the community instead #GERD - -cont PPI but increase to BID dosing and add carafate 1gm QID due to ongoing symptoms -needs outpatient EGD #DVT proph - -Eliquis 5mg BID #abnormal EKG - -echo wnl -nonspecific anterior ST changes on EKG uncertain -would benefit from outpatient stress test for risk factor stratification very complicated care today multiple bedside visits, multiple calls to case management, etc. total time today on all care activities 90 minutes Admission and Anticipated Discharge Date Admission Date: October 15, 2025 Subjective this am patient was having pleuritic chest discomfort - NOT worse with supine positioning pain was over the lower sternal area she feels like her recent cold is in her chest coughing, and having some mucous production no dyspnea or BAEZ pleuritic pain is not radiating the pleuritic pain is not similar to any symptoms she had when her PEs were found several months ago - in fact she had NO chest pain with those PEs no abd pain states today's symptoms are different vs her typical GERD symptoms reports that possibly her mother or a friend could come get her from [place] this weekend she can't stay with either - she will end up in a homeless long term in [place] she stayed in a long term for 2 months last winter Review of Systems Review of Systems: gen - no fevers or chills cv - see HPI; no orthopnea pulm - mild wheeze and mild cough GI - no N/V Physical Exam Physical Exam: 1st exam: gen - lying comfortably in bed, no signs of withdrawal, despite c/o pain she is comfortable HENT - MMM neck - no JVD chest - no reproducible chest wall tenderness to palpation heart - RRR, s1 s2, no murmur lungs - mild end-exp wheezes b/l, poor airation abd - soft NT ND BS+ ext - no edema, pulses 2+ b/l feet psych - a/o x 3 neuro - no tremors 2nd exam: (post-albuterol) lungs - airation MUCH improved, wheezes improved, no rales Results & Data Results & Data Vital Signs (Past 12 Hours) Vital Signs Temp Pulse Resp BP Pulse Ox O2 Del Method 10/15/25 16:33 36.5 C 91 H 19 156/95 H 98 Room Air 10/15/25 12:26 16 95 Room Air 10/15/25 11:59 36.5 C 74 16 163/92 H 93 Room Air 10/15/25 10:00 78 16 150/90 H 95 Room Air 10/15/25 08:00 Room Air 10/15/25 07:37 36.7 C 91 H 16 146/99 H 93 Room Air Laboratory Results Laboratory Results - last 24 hr 10/15/25 10/15/25 09:55 09:56 WBC 8.87 RBC 3.46 L Hgb 8.7 L Hct 29.0 L MCV 83.8 MCH 25.1 MCHC 30.0 L RDW Std Deviation 49.5 H RDW Coeff of Eldon 16.6 H Plt Count 302 MPV 9.5 Absolute Nucleated RBC 0.02 Nucleated RBC % (auto) 0.2 Troponin I High Sens 4.0 Diagnostic Findings EKG - my reading - NSR, nonspecific ST changes anterior leads - unchanged from prior EKGs Chest X-Ray 10/15/25 15:55 Clinical History: Acute bronchitis Technique: PA and lateral views of the chest were obtained Findings: There is possible right lower lobe infiltrate. The heart size is within normal limits. No pleural effusion or pneumothorax is seen. There is no definite pulmonary nodule. No fracture is noted. No foreign body is seen Impression: Possible right lower lobe pneumonia ACT 112: Positive. There are findings on this exam that require communication between the performing entity and the patient following Patient Test Result Information Act ([place] ACT 112) guidelines. Electronically signed by Petros Da Silva 10-15-2025 5:25 PM PG Care Time/CCT Total # of Minutes Spent Total Time Spent with Patient: Total time spent is greater than 50% in coordination of care (as documented) at patient's floor/unit and/or counseling patient: Prolonged Care Time Prolonged Care Time: Yes Total Prolonged Care Time: 90 Coding Level of Care Code 55703 SUB INP/OBS CARE 3/50MIN (25 - SIGNIFICANT, SEPARATELY IDENTIFIABLE ) Diagnoses RLL pneumonia J18.9 Pleuritic chest pain R07.81 Alcohol abuse F10.10 Pulmonary emboli I26.99 GERD (gastroesophageal reflux disease) K21.9 Depression F32.A Anxiety F41.9 Tobacco dependence F17.200 Iron deficiency anemia D50.9 Methadone maintenance therapy patient Z79.891 Additional Codes Prolonged Care Time - Prolonged Care Time: Yes ([id number])
[2025-10-15] MEDS: guaiFENesin 600 MG TABCR PO SCH (21:19)
[2025-10-15] MEDS: CYCLOBENZAPRINE HCL 10 MG TAB PO PRN (21:21)
[2025-10-15] MEDS: CEFDINIR 300 MG CAP PO SCH (21:21)
[2025-10-16] MEDS: IRON SUCROSE 300 MG in SODIUM CHLORIDE 0.9% 250 ML IV ONE (08:36)
[2025-10-16] MEDS: DOXYCYCLINE HYCLATE 100 MG CAP PO SCH (08:37)
--- NOTE | 2025-10-16 18:56 | Hospitalist Progress Note ---
Date of Service October 16, 2025 Assessment & Plan (1) RLL pneumonia: (2) Pleuritic chest pain: (3) Alcohol abuse: (4) Pulmonary emboli: (5) GERD (gastroesophageal reflux disease): (6) Depression: (7) Anxiety: (8) Tobacco dependence: (9) Iron deficiency anemia: (10) Methadone maintenance therapy patient: Plan 39yo female with recent diagnosis of pulmonary emboli about 2 months ago at [facility] - now on Eliquis, alcohol abuse, methadone maintenance therapy for prior h/o opiate abuse, depression, HTN, GERD and tobacco dependence. Now being admitted for medical clearance to ensure no withdrawal from alcohol or other substance prior to admittance to inpatient psychiatric unit. #RLL pneumonia and acute bronchitis - -cont Breo daily -cont mucinex 1200mg BID -cont cefdinir 300mg BID x 7 days + doxy 100mg BID x 7 days -remains stable in room air #alcohol abuse - -again no signs of withdrawal -remains on AWSS scale; has not required any prn ativan -cont thiamine -cont folic acid #tobacco dependence - -nicoderm patch 14mg/day #methadone maintenance - -currently takes 93mg BID -has been on methadone for 1-2 years; prior to such was on Suboxone, and prior to that had been on various opiates #iron deficiency anemia - -iron studies very c/w severe iron deficiency -she does not have menses; GI blood losses chronically? will need GI w/u upon return to [place], her home city -cont PPI -IV venofer 300mg IV x 3 doses while here; dose #3 today -B12 level is low normal (290s) - supplement #recent h/o PEs on Eliquis - -unprovoked -she reports dopplers of legs were negative -is establishing with hematology back home -cont Eliquis 5mg BID #HTN - -cont home meds but hold lasix again #depression / anxiety - -cont Xanax prn to avoid benzo withdrawal -cont gabapentin QID (home med) -defer other meds to psych -patient wanted to go to the [facility] but unfortunately she has not been accepted there and she does not meet criteria for [address] [place] [address] Behavioral Health unit -thus, does not require inpatient psych treatment -will ultimately d/c to the community instead #GERD - -cont PPI but increased to BID dosing and added carafate 1gm QID due to ongoing symptoms -needs outpatient EGD #DVT proph - -Eliquis 5mg BID #abnormal EKG - -echo wnl -nonspecific anterior ST changes on EKG uncertain -would benefit from outpatient stress test for risk factor stratification care d/w social work today about how to get her back to the [facility] which is where she lives will cont to work on this the rest of the weekend Admission and Anticipated Discharge Date Admission Date: October 15, 2025 Subjective no events overnight tele wnl no chest pain pleuritic pain has resolved cough improved with inhalers no reflux/heartburn today eating well reports she won't have a ride back to [place] until Saturday at earliest -- Saturday most likely also reports she has one day's worth or 1.5 day's worth of methadone on her belongings Methadone clinic in [place] opens Saturday am at 0600 Review of Systems Review of Systems: gen - overall feels ok GI - moving bowels, no nausea/emesis Physical Exam Physical Exam: gen - NAD, no signs of withdrawal HENT - MMM neck - no JVD heart - RRR, s1 s2, no murmur lungs - minimal wheezes b/l, airation improved today; minimally decreased BS R base abd - soft NT ND BS+ ext - no edema, pulses 2+ b/l feet psych - a/o x 3 neuro - no tremors Results & Data Results & Data Vital Signs (Past 12 Hours) Vital Signs Temp Pulse Pulse Resp BP Pulse Ox O2 Del Method 10/16/25 18:06 73 10/16/25 15:32 36.9 C 80 18 149/90 H 93 Room Air 10/16/25 10:52 36.8 C 76 18 136/86 90 Room Air 10/16/25 08:30 Room Air 10/16/25 07:35 36.8 C 84 18 146/87 H 94 Room Air 10/16/25 07:00 71 PG Care Time/CCT Total # of Minutes Spent Total Time Spent with Patient: Total time spent is greater than 50% in coordination of care (as documented) at patient's floor/unit and/or counseling patient: Coding Level of Care Code 17707 SUB INP/OBS CARE 2/35MIN Diagnoses RLL pneumonia J18.9 Pleuritic chest pain R07.81 Alcohol abuse F10.10 Pulmonary emboli I26.99 GERD (gastroesophageal reflux disease) K21.9 Depression F32.A Anxiety F41.9 Tobacco dependence F17.200 Iron deficiency anemia D50.9 Methadone maintenance therapy patient Z79.891
[2025-10-17 06:32] LABS: Hematocrit (blood only) 28.8 % (37.0-47.0); Hemoglobin 8.6 g/dL (12.0-16.0); Mean Corpuscular Hemoglobin 25.2 pg (25.0-34.0); Mean Corpuscular Volume 84.5 fL (80.0-100.0); Platelet Count 299 K/uL (130-400); RDW Standard Deviation 51.4 fL (36.4-46.3); Red Blood Count 3.41 M/uL (4.20-5.40); White Blood Count 8.21 K/ul (4.8-10.8)
[2025-10-17 06:52] LABS: Anion Gap 7.0 (3-11); Blood Urea Nitrogen 11.0 mg/dl (6-23); Calcium 9.1 mg/dl (8.6-10.3); Carbon Dioxide 28.0 mmol/L (21-32); Chloride 107.0 mmol/L (98-107); Creatinine Clr Calc Pharmacy 112.6 ml/min; Glucose 88.0 mg/dl (70-99(Fasting)); Potassium 4.3 mmol/L (3.5-5.1); Sodium 142.0 mmol/L (136-145)
[2025-10-17] MEDS: THIAMINE HCL 100 MG TAB PO SCH (12:12)
--- NOTE | 2025-10-17 18:11 | Hospitalist Progress Note ---
Date of Service October 17, 2025 Assessment & Plan (1) RLL pneumonia: (2) Pleuritic chest pain: (3) Alcohol abuse: (4) Pulmonary emboli: (5) GERD (gastroesophageal reflux disease): (6) Depression: (7) Anxiety: (8) Tobacco dependence: (9) Iron deficiency anemia: (10) Methadone maintenance therapy patient: Plan 39yo female with recent diagnosis of pulmonary emboli about 2 months ago at [facility] - now on Eliquis, alcohol abuse, methadone maintenance therapy for prior h/o opiate abuse, depression, HTN, GERD and tobacco dependence. Now being admitted for medical clearance to ensure no withdrawal from alcohol or other substance prior to admittance to inpatient psychiatric unit. #RLL pneumonia and acute bronchitis - -cont Breo daily -cont mucinex 1200mg BID -cont cefdinir 300mg BID x 7 days + doxy 100mg BID x 7 days - day #3 of each -plan 7 day course -remains stable in room air #alcohol abuse - -no signs of withdrawal except for intermittent tachycardia? but otherwise no other symptoms -remains on AWSS scale; has not required any prn ativan -cont thiamine 200mg BID -cont folic acid 1mg daily #tobacco dependence - -nicoderm patch 14mg/day #methadone maintenance - -currently takes 93mg BID -has been on methadone for 1-2 years; prior to such was on Suboxone, and prior to that had been on various opiates #iron deficiency anemia - -iron studies very c/w severe iron deficiency -she does not have menses; GI blood losses chronically? will need GI w/u upon return to [place], her home [facility] -cont PPI -s/p IV venofer 300mg IV x 3 doses while here -h/h stable today -B12 level is low normal (290s) - supplement #recent h/o PEs on Eliquis - -unprovoked -she reports dopplers of legs were negative -is establishing with hematology back home -cont Eliquis 5mg BID #HTN - -cont home meds but hold lasix again #depression / anxiety - -cont Xanax prn to avoid benzo withdrawal -cont gabapentin QID (home med) -defer other meds to psych -patient wanted to go to the [facility] but unfortunately she has not been accepted there and she does not meet criteria for [address] [place] [address] Behavioral Health unit -thus, does not require inpatient psych treatment -will ultimately [facility] #GERD - -cont PPI BID and carafate 1gm QID -needs outpatient EGD #DVT proph - -Eliquis 5mg BID #abnormal EKG - -echo wnl -nonspecific anterior ST changes on EKG uncertain -would benefit from outpatient stress test for risk factor stratification d/c back to [place] tomorrow AM Admission and Anticipated Discharge Date Admission Date: October 15, 2025 Subjective tele overnight wnl sinus tach with activity or when she is anxious denies any GERD symptoms today cough/congestion is improved no dyspnea no chest pain she confirms that her friend can pick her up tomorrow late in the am Review of Systems Review of Systems: cv - no orthopnea, no PND GI - no abd pain or n/v pulm - cough with wheeze Physical Exam Physical Exam: gen - NAD, walking around the room HENT - MMM neck - no JVD heart - RRR, s1 s2, no murmur lungs - occasional scattered wheeze, airation good today abd - soft NT ND BS+ ext - no edema, pulses 2+ b/l feet psych - a/o x 3 neuro - no tremors Results & Data Results & Data Vital Signs (Past 12 Hours) Vital Signs Temp Pulse Pulse Resp BP BP Pulse Ox 10/17/25 15:32 67 10/17/25 15:24 36.8 C 80 18 163/85 H 94 10/17/25 10:58 36.7 C 82 19 148/85 H 95 10/17/25 09:30 10/17/25 07:32 36.9 C 96 H 22 130/81 96 10/17/25 07:00 78 O2 Del Method 10/17/25 15:32 10/17/25 15:24 Room Air 10/17/25 10:58 Room Air 10/17/25 09:30 Room Air 10/17/25 07:32 Room Air 10/17/25 07:00 Laboratory Results Laboratory Results - last 24 hr 10/17/25 05:38 WBC 8.21 RBC 3.41 L Hgb 8.6 L Hct 28.8 L MCV 84.5 MCH 25.2 MCHC 29.9 L RDW Std Deviation 51.4 H RDW Coeff of Eldon 17.2 H Plt Count 299 MPV 10.0 Absolute Nucleated RBC 0.03 Nucleated RBC % (auto) 0.4 Sodium 142 Potassium 4.3 Chloride 107 Carbon Dioxide 28 Anion Gap 7 BUN 11 Creatinine 0.75 Est Cr Clr Drug Dosing 112.6 eGFR 103.79 BUN/Creatinine Ratio 14.7 Glucose 88 Calcium 9.1 PG Care Time/CCT Total # of Minutes Spent Total Time Spent with Patient: Total time spent is greater than 50% in coordination of care (as documented) at patient's floor/unit and/or counseling patient: Coding Level of Care Code 04007 SUB INP/OBS CARE 2/35MIN Diagnoses RLL pneumonia J18.9 Pleuritic chest pain R07.81 Alcohol abuse F10.10 Pulmonary emboli I26.99 GERD (gastroesophageal reflux disease) K21.9 Depression F32.A Anxiety F41.9 Tobacco dependence F17.200 Iron deficiency anemia D50.9 Methadone maintenance therapy patient Z79.868
[2025-10-18 02:40] VITALS: RESP 20
[2025-10-18 07:35] VITALS: PULSE 97; TEMP 97.9; O2SAT 95
--- NOTE | 2025-10-18 10:14 | Discharge Summary ---
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 - now on Eliquis, alcohol abuse, methadone maintenance therapy for prior h/o opiate abuse, depression, HTN, GERD and tobacco dependence. Now being admitted for medical clearance to ensure no withdrawal from alcohol or other substance prior to admittance to inpatient psychiatric unit. #RLL pneumonia and acute bronchitis - -cont Breo daily -cont mucinex 1200mg BID -cont cefdinir 300mg BID x 7 days + doxy 100mg BID x 7 days - day #3 of each -plan 7 day course -remains stable in room air #alcohol abuse - -no signs of withdrawal except for intermittent tachycardia? but otherwise no other symptoms -remains on AWSS scale; has not required any prn ativan -cont thiamine 200mg BID -cont folic acid 1mg daily #tobacco dependence - -nicoderm patch 14mg/day #methadone maintenance - -currently takes 93mg BID -has been on methadone for 1-2 years; prior to such was on Suboxone, and prior to that had been on various opiates #iron deficiency anemia - -iron studies very c/w severe iron deficiency -she does not have menses; GI blood losses chronically? will need GI w/u upon return to [facility] -cont PPI -s/p IV venofer 300mg IV x 3 doses while here -h/h stable today -B12 level is low normal (290s) - supplement #recent h/o PEs on Eliquis - -unprovoked -she reports dopplers of legs were negative -is establishing with hematology back home -cont Eliquis 5mg BID #HTN - -cont home meds but hold lasix again #depression / anxiety - -cont Xanax prn to avoid benzo withdrawal -cont gabapentin QID (home med) -defer other meds to psych -patient wanted to go to the [facility] but unfortunately she has not been accepted there and she does not meet criteria for [address] [place] [address] Behavioral Health unit -thus, does not require inpatient psych treatment -will ultimately d/c to the [facility] instead #GERD - -cont PPI BID and carafate 1gm QID -needs outpatient EGD #DVT proph - -Eliquis 5mg BID #abnormal EKG - -echo wnl -nonspecific anterior ST changes on EKG uncertain -would benefit from outpatient stress test for risk factor stratification d/c back to [place] tomorrow AM Admission HPI Per Admitting Provider 39yo female with recent diagnosis of pulmonary emboli about [address] [facility] - now on Eliquis, alcohol abuse, methadone maintenance therapy for prior h/o opiate abuse, depression, HTN, GERD and tobacco dependence. She had presented to the [facility] yesterday with hopes of gaining admission for her depression & other mental health problems. Due to concerns for possible alcohol withdrawal she was referred to the ER for evaluation by the [facility]. While in the [facility] ER she was seen by the behavioral health liaison and it was requested that she have at least 24 hours of observation in the medical [place] to ensure no etoh withdrawal. Patient reports drinking about 8 shots of liquor/day. She began drinking at a young age. She has never had etoh withdrawal to her knowledge. She has never gone to inpatient drug/etoh rehab. Her last etoh beverage was yesterday afternoon - about 2pm. Reports 2 admissions in her teenage years for depression. Has had thoughts of dying in the past, but denies any active suicidal or homicidal ideation at this time. Discharge Exam gen - NAD, walking around the room HENT - MMM neck - no JVD heart - RRR, s1 s2, no murmur lungs - occasional scattered wheeze, airation good today abd - soft NT ND BS+ ext - no edema, pulses 2+ b/l feet psych - a/o x 3 neuro - no tremors Discharge Plan Discharge Items Patient Disposition: Home - Self-Care Reason For Visit: CONCERN FOR ALCOHOL WITHDRAWAL Discharge Diagnosis: 1. concern for possible alcohol withdrawal - none seen 2. suspected right lower lobe pneumonia 3. acute bronchitis 4. severe iron deficiency anemia (discharge hemoglobin 8.6) - 3 runs of IV iron given; recommend follow-up with international coordinator for upper endoscopy 5. vitamin B12 deficiency (B12 level 292) 6. chronic methadone use 7. anxiety 8. severe GERD - recommend follow-up with international coordinator to have upper endoscopy completed 9. chest pains, abnormal EKG - no evidence of heart attack, but recommend outpatient stress test 10. recent pulmonary emboli now on Eliquis 11. tobacco and alcohol use Activity: Resume your previous activity Non-emergency contact: Primary Care Provider Call non-emergency contact if: you have any medication questions and your symptoms worsen Follow-up/Referrals: Cornel Palma [Other] (see Ms Palma within 1 week) Diet: Regular Addtl Attending Provider Instructions: Ms Lainez, You were hospitalized to observe for any alcohol withdrawal. Fortunately it did not appear that you had any withdrawal symptoms. During the stay you were seen by [facility] Psychiatry who felt that you didn't need inpatient psychiatric treatment at [facility]. And, unfortunately, the [facility] could not accept you into their treatment facility. In addition to the above we addressed the following issues - 1. severe iron deficiency anemia. You received 3 infusions of IV Iron (Venofer). Discharge hemoglobin was 8.6. 2. right lower lobe pneumonia - suspected. You received 3 days of oral antibiotics, and you need 4 more days of antibiotics upon discharge. 3. acute bronchitis. 4. abnormal EKG - echocardiogram was performed and this showed normal heart function and normal valve function. I would recommend that you talk to your family doctor about getting a stress test. 5. severe heartburn - acid reducers were increased for this. I would recommend asking your family doctor for a gastroenterology referral to get an "upper endoscopy" to look for stomach ulcers, esophagus issues, etc. 6. vitamin B12 deficiency - supplementation given. 7. recent blood clots in the lungs ("pulmonary emboli") - you were continued on Eliquis. Other recommendations - 1. do not take any tgum-agt-xtyjbyp anti-inflammatory medicines such as aspirin, motrin, ibuprofen, naprosyn, aleve. Also, do not take prescription meloxicam. These medicines will make your stomach problems worse, and they also interact with your Eliquis. 2. please have your family doctor repeat your CBC blood count in about 7-10 days to ensure stability. 3. repeat your iron levels in 7-10 days. 4. repeat your vitamin B12 level in 4-6 months. 5. have a repeat chest x-ray in 6 weeks. This is to ensure the right lower lobe pneumonia has resolved. 6. talk to your family doctor about the sweats you have been having. Return to any hospital if - -you have fevers over 100 degrees -you have severe diarrhea (3 or more liquid stools in 24 hours) -you have worsening shortness of breath -you have chest pains -you have dark, black or tarry stools -any other concerns It was our pleasure to care for you! Happy holidays, -Bertram Peter Pending Studies at Discharge: No Stand-Alone Forms: My [facility] [employer], Smoking Cessation Medications and DC Order Prescriptions: New doxycycline hyclate 100 mg Capsule 100 mg PO BID 4 Days Qty: 8 0RF pantoprazole 40 mg Tablet,Delayed Release (Dr/Ec) 40 mg PO BID Qty: 60 0RF cefdinir 300 mg Capsule 300 mg PO BID 4 Days Qty: 8 0RF fluticasone furoate-vilanterol [Breo Ellipta] 100-25 mcg/dose Blister With Device 1 inh inhalation DAILY Qty: 1 0RF Rx Instructions: continue this inhaler until it runs out; rinse mouth with water after each use sucralfate [Carafate] 1 gram tablet 1 g PO AC 7 Days Qty: 21 0RF cyanocobalamin (vitamin B-12) 1,000 mcg tablet 1,000 mcg PO DAILY Qty: 90 1RF thiamine HCl (vitamin B1) 100 mg tablet 200 mg PO BID 30 Days Qty: 120 0RF Continued methadone 93 mg PO BID Eliquis 5 mg tablet 5 mg PO BID gabapentin 800 mg tablet 800 mg PO QID alprazolam 0.5 mg tablet 0.5 mg PO TID PRN (Reason: anxiety ) losartan 100 mg tablet 100 mg PO DAILY clonidine HCl 0.2 mg tablet 0.2 mg PO TID PRN (Reason: Hypertension) cyclobenzaprine 10 mg tablet 10 mg PO TID PRN (Reason: Muscle Spasm) Azo Boric Acid 600 mg Suppository 600 mg VAGINAL QPM Changed furosemide 40 mg tablet 40 mg PO QAM PRN (Reason: swelling of legs) Qty: 0 0RF Discontinued meloxicam 15 mg tablet 15 mg PO QAM esomeprazole magnesium 40 mg capsule,delayed release(DR/EC) 20 mg PO QAM esomeprazole magnesium [Nexium] 40 mg Capsule,Delayed Release(Dr/Ec) 40 mg PO DAILY Discharge Orders: Discharge Order (Routine); Ordered 10/18/25 Ordered By: Bertram Peter Admission Data Admit Date/Time: 10/15/25 17:25 Attending Provider: Bertram Peter Admit Provider: Bertram Peter Primary Care Provider: PCP,NO Other Providers: Bertram Peter; Karen Adams; Jamie Albarran; Gia Monroe; Hever Waters; Neymar Moeller; Luis Angel Goldstein; Analy [facility] [facility] Stay Data Consultations 10/13/25 14:09 ED Decision to Admit Stat 10/14/25 11:55 Consult Psychiatry Routine Pending Results Patient Have Any Pending Studies at Discharge: No Discharge Instructions Given to Patient (Per Discharging Provider) Ms Lainez, You were hospitalized to observe for any alcohol withdrawal. Fortunately it did not appear that you had any withdrawal symptoms. During the stay you were seen by [facility]iatry who felt that you didn't need inpatient psychiatric treatment at [facility]. And, unfortunately, the [facility] could not accept you into their treatment facility. In addition to the above we addressed the following issues - 1. severe iron deficiency anemia. You received 3 infusions of IV Iron (Venofer). Discharge hemoglobin was 8.6. 2. right lower lobe pneumonia - suspected. You received 3 days of oral antibiotics, and you need 4 more days of antibiotics upon discharge. 3. acute bronchitis. 4. abnormal EKG - echocardiogram was performed and this showed normal heart function and normal valve function. I would recommend that you talk to your family doctor about getting a stress test. 5. severe heartburn - acid reducers were increased for this. I would recommend asking your family doctor for a gastroenterology referral to get an "upper endoscopy" to look for stomach ulcers, esophagus issues, etc. 6. vitamin B12 deficiency - supplementation given. 7. recent blood clots in the lungs ("pulmonary emboli") - you were continued on Eliquis. Other recommendations - 1. do not take any adnj-rsw-kjiuaja anti-inflammatory medicines such as aspirin, motrin, ibuprofen, naprosyn, aleve. Also, do not take prescription meloxicam. These medicines will make your stomach problems worse, and they also interact with your Eliquis. 2. please have your family doctor repeat your CBC blood count in about 7-10 days to ensure stability. 3. repeat your iron levels in 7-10 days. 4. repeat your vitamin B12 level in 4-6 months. 5. have a repeat chest x-ray in 6 weeks. This is to ensure the right lower lobe pneumonia has resolved. 6. talk to your family doctor about the sweats you have been having. Return to any hospital if - -you have fevers over 100 degrees -you have severe diarrhea (3 or more liquid stools in 24 hours) -you have worsening shortness of breath -you have chest pains -you have dark, black or tarry stools -any other concerns It was our pleasure to care for you! Happy holidays, -Bertram Peter Coding Diagnoses RLL pneumonia J18.9 Pleuritic chest pain R07.81 Alcohol abuse F10.10 Pulmonary emboli I26.99 GERD (gastroesophageal reflux disease) K21.9 Depression F32.A Anxiety F41.9 Tobacco dependence F17.200 Iron deficiency anemia D50.9 Methadone maintenance therapy patient Z79.891
[2025-10-18 12:09] VITALS: BP 168/85
[2025-10-18 17:08] LABS: 7-Aminoclonaz, Confirm NEGATIVE ng/mL (<25); Hydro-Alp Ur, GC/MS 449 ng/mL (<25); Hydroxyethylflurazepam, Conf NEGATIVE ng/mL (<50); Hydroxymidazolam Ur, GC/MS NEGATIVE ng/mL (<50); Lorazepam, Ur GC/MS NEGATIVE ng/mL (<50); Methadone, Ur Metabolite >20000 ng/mL (<100); Methadone, Ur Verification 9559 ng/mL (<100); Nordiazepam, Confirm NEGATIVE ng/mL (<50); Oxazepam Ur, GC/MS NEGATIVE ng/mL (<50); Temazepam, Confirm NEGATIVE ng/mL (<50)
== END 2025-10-18 12:29 | disposition home or self-care (01) | DRG 194 ==
LOC: ED 19:10 → EDINP 19:10 → 2E 10-13 20:06